=== PATIENT | male | born 1940 | race Caucasian/White ===

== ENCOUNTER → 2016-08-15 | Outpatient (CLI) | payer OTHER, BC ==
[~2016-08-15] VITALS: Ht 177.8 cm; Wt 83.9 kg
[~2016-08-15] MED LIST: CENTRUM SILVER1 EAC4 PO; COZAAR100 MG PO; FISH OIL 1,001000 M2 PO; LO-DOSE ASPIRIN81 M1 PO; METFORMIN HCL500 MG PO; VITAMIN D1000 UNI1 PO
--- NOTE | ~2016-08-15 | S ---
[facility] [place] [address] SURGICAL PATH RPT PROCEDURE Name: BROOKLYN KATZ Room #: REG MAGAN Wil[place].#: [id number] Admission: 08/15/16 Date of : 40 Discharge: Report #: [id number] Path Case #: [id number] PATHOLOGY REPORT COLLECTION DATE: 08/15/2016 RECEIVED DATE: 08/15/2016 SUBMITTING PHYS: Dr. Adam Grant OTHER PHYS: Dr. Jai Rivera SPECIMEN(S) RECEIVED: A.70 cm polyp * * * * * * * * * * * * FINAL DIAGNOSIS: "70 cm polyp", biopsy: - Tubular adenoma; no high-grade dysplasia. PATHOLOGIST: Jossy Arreola M.D. REPORT ELECTRONICALLY SIGNED BY: Jossy Arreola M.D. DATE/TIME: 08/19/2016 22:17 * * * * * * * * * * * * GROSS PATHOLOGY: Received in formalin labeled "Brooklyn Katz, 70 cm polyp," is a segment of oliveira soft tissue measuring 0.3 cm in maximum dimension. The specimen is submitted entirely in cassette A1. (KAH; 08/18/2016) CLINICAL HISTORY: history of polyps polyp, diverticulosis INITIAL CPT CODE(S): A; 06996 Professional services performed by [facility] at [facility] [address]riela Guilherme [address], [place] [address] Technical services performed by [facility] at [address] [place] [address], [address], [place] [address]. [facility] [address] [place] [address] SURGICAL PATH RPT PROCEDURE Name: BROOKLYN KATZ Room #: REG MAGAN Uriarte#: [id number] Admission: 08/15/16 Date of : 40 Discharge: Report #: [id number] Path Case #: [id number] [place] [address] PHONE: [phone] DIRECTOR: Cesar Crespo M.D. * * * END OF REPORT * * *
--- NOTE | ~2016-08-15 | P ---
[facility] [place] [address] PROCEDURE REPORT Name: KIA KATZ [id number] Admission: 08/15/16 Attend Phys: Adam Grant MD Discharge: Date of : 40 Report #: [id number] THIS REPORT FOR: //name// CC: Jai Grant BRIEF HISTORY: The patient is a 75-year-old male for high risk screening colonoscopy due to a history of colon polyps. PREOPERATIVE DIAGNOSIS: High risk screening colonoscopy. POSTOPERATIVE DIAGNOSES: 1. Diminutive polyp at 70 cm. 2. Moderate sigmoid diverticulosis coli with few scattered diverticula in proximal colon. 3. Small internal hemorrhoids. MEDICATIONS: Deep sedation with propofol per anesthesia. SPECIMEN: Polyp from 70 cm. ESTIMATED BLOOD LOSS: 3 mL. PROCEDURE: Colonoscopy to cecum and terminal ileum with biopsy. FINDINGS: Prior to propofol sedation, procedure of colonoscopy discussed with the patient as well as potential risks, benefits, and complications. He indicates he understands and desires to proceed. With the patient in left lateral decubitus position, digital examination was completed, which revealed no abnormalities. Subsequently, the Stereotaxis video colonoscope was introduced in the rectum, advanced under direct vision to the cecum. Done with minimal difficulty. Cecum was identified by the ileocecal valve and the appendiceal orifice. I was able to visualize the distal segment of terminal ileum, which was inspected and noted to be unremarkable. At that point, the scope was slowly withdrawn and careful circumferential views obtained including retroflexing the scope in the ascending colon. Upon slow withdrawal of the scope, the prep was good. Mucosa was within normal limits, normal vascular pattern, and normal light reflex. As we withdrew the scope, he was noted to have a normal appearing mucosa. Occasional scattered diverticula was seen in the proximal colon. As we withdrew the scope into the left colon to about 70 cm, a diminutive polyp was seen and removed by biopsy. The scope was further withdrawn and no additional polyps were seen. There was moderately severe diverticular disease of the sigmoid colon without endoscopic evidence of diverticulitis. Scope was withdrawn in the rectum. Upon retroflexion, small hemorrhoids were seen. Scope was withdrawn. The patient tolerated the [facility] [address] [place] [address] PROCEDURE REPORT Name: KIA KATZ Room #: REG [facility].#: [id number] Admission: 08/15/16 Attend Phys: Adam Grant MD Discharge: Date of : 40 Report #: [id number] procedure well. CONDITION OF THE PATIENT UPON DISCHARGE: Following procedure, the patient drowsy, aroused, conversant and will be discharged home when fully ambulatory. INSTRUCTIONS TO THE PATIENT AND FAMILY AT THE TIME OF DISCHARGE: One diminutive polyp identified and removed today. We will follow up on the path report. If this is an adenoma, he should return in 5 years. If it is not an adenoma, 10 years would be indicated, but at this point in life, he may not benefit from continued routine colonoscopy. He will return to the care of Dr. Jai Rivera, return to see me as needed. Last colonoscopy was about 5 years ago. Withdrawal time from cecum was 15 minutes. <ELECTRONICALLY SIGNED> By: Adam Grant MD 08/16/16 1228 [id number] Adam Grant MD /nt
== END | disposition home or self-care (01) ==
LOC: GI 07:41
DX: Z12.11 Encounter for screening for malignant neoplasm of colon (principal); K57.30 Diverticulosis of large intestine without perforation or abscess without bleeding; K64.8 Other hemorrhoids; D12.4 Benign neoplasm of descending colon; Z87.891 Personal history of nicotine dependence
CPT/HCPCS: 62110; 62900